=== PATIENT | female | born 1975 | race Caucasian/White ===

== ENCOUNTER 2016-10-18 05:06 | Emergency (ER) | payer OTHER ==
[2016-10-18] MEDS ORDERED: ONDANSETRON 4 MG/2 ML VIAL IVP STA (05:21)
[2016-10-18] MEDS ORDERED: NITROGLYCERIN OINT 1 INCH/GM PACKET TOPICAL STA (05:21)
[2016-10-18] MEDS ORDERED: SODIUM CHLORIDE 0.9% 1,000 ML IV STA (05:21)
[2016-10-18] MEDS ORDERED: MORPHINE SULFATE 2 MG/ML SYRINGE IVP STA (05:21)
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
[2016-10-18 05:35] LABS: Basophils % (A) 1 %; CH 30.7; CHCM 33.9; Eosinophils # (A) 0.3 k/uL (0-0.7); Eosinophils % (A) 4 %; HCT 42.2 % (34.0-46.0); HDW 2.27; HGB 13.8 gm/dL (11.4-16.0); Luc # (Auto) 0.15; Luc % (Auto) 2; Lymphocytes # (A) 3.3 k/uL (1.0-4.8); Lymphocytes % (A) 45 %; MCH 29.9 pg (25.0-35.0); MCHC 32.8 g/dL (31.0-37.0); Mean Platelet Volume 6.1; Monocytes # (A) 0.3 k/uL (0-1.0); Monocytes % (A) 5 %; Neutrophils # (A) 3.3 k/uL (1.3-7.7); Neutrophils % (A) 44 %; RBC 4.64 m/uL (3.80-5.40); RDW 12.5 % (11.5-15.5); WBC 7.3 k/uL (3.8-10.6); WBC (Perox) 7.47
[2016-10-18 05:49] LABS: Partial Thromboplastin Time 23.1 sec (22.0-30.0); Prothrombin Time 10.1 sec (9.0-12.0)
[2016-10-18 05:50] LABS: ALT 29 U/L (9-52); AST 18 U/L (14-36); Alkaline Phosphatase 67 U/L (38-126); Amylase 80 U/L (30-110); Anion Gap 10 mmol/L; Blood Urea Nitrogen 13 mg/dL (7-17); Carbon Dioxide 27 mmol/L (22-30); Chloride 107 mmol/L (98-107); Glucose 82 mg/dL (74-99); Non-African American GFR(MDRD) >60 (>60 ml/min/1.73 sqM); Potassium 3.3 mmol/L (3.5-5.1); Sodium 144 mmol/L (137-145); Total Bilirubin 0.3 mg/dL (0.2-1.3); Total Protein 6.1 g/dL (6.3-8.2)
[2016-10-18 05:57] LABS: Creatine Kinase 51 U/L (30-135)
[2016-10-18 06:11] LABS: Creatine Kinase MB 0.5 ng/mL (0.0-2.4); Troponin I <0.012 ng/mL (0.000-0.034)
--- NOTE | 2016-10-18 06:16 | XR ---
EXAMINATION TYPE: XR chest 2V DATE OF EXAM: 10/18/2016 5:51 AM COMPARISON: 06/20/2016 HISTORY: Chest pain TECHNIQUE: Frontal and lateral views of the chest are obtained. FINDINGS: The heart and mediastinum are normal. Lungs are clear. Diaphragm is normal. There are ches t leads. Bony thorax is intact. IMPRESSION: Normal chest. No change.
[2016-10-18 06:34] VITALS: BP 109/74; PULSE 72; RESP 109; TEMP 97.1
== END 2016-10-18 07:04 | disposition home or self-care (01) ==
LOC: EC 05:06
DX: R07.81 Pleurodynia (principal); F32.9 Major depressive disorder, single episode, unspecified; F17.200 Nicotine dependence, unspecified, uncomplicated; Z79.899 Other long term (current) drug therapy; Z86.69 Personal history of other diseases of the nervous system and sense organs
CPT/HCPCS: 99285; 96374; 96375; 96361; 36415; 93005; 85379; 80053; 82150; 82550; 82553; 83690; 83735; 84484; 85025; 85610; 85730; 71020; J2405; J2270

== ENCOUNTER 2016-10-22 | Emergency (ER) | payer OTHER ==
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
== END 2016-10-22 18:00 | disposition home or self-care (01) ==
CPT/HCPCS: 99282

== ENCOUNTER 2017-01-04 02:29 | Emergency (ER) | payer OTHER ==
[2017-01-04 02:36] VITALS: BP 136/79; PULSE 82; RESP 18; TEMP 98.2
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
[2017-01-04] MEDS ORDERED: ACET/COD 300 MG/30 MG STARTER PACK 6 TAB BTL PO STA (02:52)
== END 2017-01-04 03:07 | disposition home or self-care (01) ==
LOC: EC 02:29
DX: K02.9 Dental caries, unspecified (principal); G35 Multiple sclerosis; F31.9 Bipolar disorder, unspecified; F41.9 Anxiety disorder, unspecified; F12.90 Cannabis use, unspecified, uncomplicated; F17.200 Nicotine dependence, unspecified, uncomplicated; Z79.899 Other long term (current) drug therapy
CPT/HCPCS: 99282

== ENCOUNTER → 2017-02-21 | Outpatient (CLI) | payer OTHER ==
[2017-02-22 16:23] LABS: Mis test requested (Blood) Mold Allergens
== END ==
LOC: LABWHC1 12:25
PROVIDERS: ATTEND Family Medicine
DX: Z77.120 Contact with and (suspected) exposure to mold (toxic) (principal)
CPT/HCPCS: 36415; 86003

== ENCOUNTER 2017-03-04 18:50 | Emergency (ER) | payer OTHER ==
[2017-03-04] MEDS ORDERED: SODIUM CHLORIDE 0.9% 500 ML IV STA (20:11)
[2017-03-04] MEDS ORDERED: SODIUM CHLORIDE 0.9% 1,000 ML IV STA (20:11)
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
[2017-03-04 21:11] LABS: Basophils % (A) 0 %; CH 30.5; CHCM 34.6; Eosinophils # (A) 0.1 k/uL (0-0.7); Eosinophils % (A) 1 %; HCT 43.4 % (34.0-46.0); HDW 2.22; Luc # (Auto) 0.08; Luc % (Auto) 1; Lymphocytes # (A) 1.2 k/uL (1.0-4.8); Lymphocytes % (A) 12 %; MCH 30.5 pg (25.0-35.0); MCHC 34.5 g/dL (31.0-37.0); MCV 88.4 fL (80.0-100.0); Mean Platelet Volume 6.1; Monocytes # (A) 0.4 k/uL (0-1.0); Monocytes % (A) 4 %; Neutrophils # (A) 8.7 k/uL (1.3-7.7); Neutrophils % (A) 82 %; RBC 4.91 m/uL (3.80-5.40); RDW 13.1 % (11.5-15.5); WBC 10.6 k/uL (3.8-10.6); WBC (Perox) 11.08
--- NOTE | 2017-03-04 21:16 | XR ---
EXAMINATION TYPE: XR chest 2V DATE OF EXAM: 03/04/2017 COMPARISON: Prior chest x-ray 18 October 2016 HISTORY: Altered mental status. TECHNIQUE: Frontal and lateral views of the chest are obtained. FINDINGS: There is no focal air space opacity, pleural effusion, or pneumothorax seen. The cardiac silhouette size is within normal limits. Calcification suggests calcific tendinitis in the right ned ulder. Prominent lung volume may be indicative of COPD. The osseous structures are intact. IMPRESSION: No acute cardiopulmonary process.
[2017-03-04 21:22] LABS: Appearance,Urine Turbid (Clear); Bacteria,Urine Many /hpf; Bilirubin,Urine Negative (Negative); Glucose,Urine (UA) Negative (Negative); Ketones,Urine 1+ (Negative); Leukocyte Esterase,Urine Large (Negative); Mucus,Urine Occasional /hpf; Nitrite,Urine Positive (Negative); PH, Urine 5.5 (5.0-8.0); Partial Thromboplastin Time 23.4 sec (22.0-30.0); Particle Count 312935; Protein,Urine 2+ (Negative); Prothrombin Time 10.5 sec (9.0-12.0); Specific Gravity,Urine 1.022 (1.001-1.035); Squamous Epithelial Cell,Urine 4 /hpf (0-4); UA Billing (MACRO vs. MICRO) MICRO; Urobilinogen,Urine <2.0 mg/dL (<2.0); WBC,Urine 70 /hpf (0-5)
[2017-03-04 21:23] LABS: ALT 23 U/L (9-52); AST 15 U/L (14-36); Alkaline Phosphatase 57 U/L (38-126); Anion Gap 8 mmol/L; Blood Urea Nitrogen 8 mg/dL (7-17); Calcium 9.5 mg/dL (8.4-10.2); Carbon Dioxide 26 mmol/L (22-30); Chloride 105 mmol/L (98-107); Glucose 88 mg/dL (74-99); Non-African American GFR(MDRD) >60 (>60 ml/min/1.73 sqM); Potassium 3.9 mmol/L (3.5-5.1); Sodium 139 mmol/L (137-145); Total Bilirubin 0.5 mg/dL (0.2-1.3); Total Protein 6.6 g/dL (6.3-8.2)
[2017-03-04 21:32] LABS: Creatine Kinase 50 U/L (30-135)
[2017-03-04 21:45] LABS: Creatine Kinase MB 0.4 ng/mL (0.0-2.4); Troponin I <0.012 ng/mL (0.000-0.034)
[2017-03-04] MEDS ORDERED: LEVOFLOXACIN 750 MG TAB PO STA (22:42)
[2017-03-05 00:50] VITALS: BP 133/73; PULSE 87; RESP 18; TEMP 97.7
== END 2017-03-05 00:52 | disposition home or self-care (01) ==
LOC: EC 18:50
DX: F19.10 Other psychoactive substance abuse, uncomplicated (principal); N39.0 Urinary tract infection, site not specified; F31.9 Bipolar disorder, unspecified; F41.9 Anxiety disorder, unspecified; F17.200 Nicotine dependence, unspecified, uncomplicated; Z79.899 Other long term (current) drug therapy
CPT/HCPCS: 36415; 71020; 80053; 80306; 81001; 82550; 82553; 84484; 85025; 85610; 85730; 93005; 96360; 96361; 99284

== ENCOUNTER 2017-04-08 23:04 | Emergency (ER) | payer OTHER ==
[2017-04-08 23:27] VITALS: BP 132/76; PULSE 90; RESP 16; TEMP 97.6
[2017-04-08] MEDS ORDERED: PHENAZOPYRIDINE 100 MG TAB PO STA (23:50)
[2017-04-08] MEDS ORDERED: CIPROFLOXACIN HCL 250 MG TAB PO STA (23:50)
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
[2017-04-09 00:11] LABS: Appearance,Urine Cloudy (Clear); Bacteria,Urine Many /hpf; Bilirubin,Urine Negative (Negative); Calcium Oxalate Crystals,Urine Many /hpf; Glucose,Urine (UA) Negative (Negative); Ketones,Urine Trace (Negative); Leukocyte Esterase,Urine Moderate (Negative); Mucus,Urine Many /hpf; Nitrite,Urine Positive (Negative); PH, Urine 5.5 (5.0-8.0); Particle Count 54602; Protein,Urine 1+ (Negative); RBC,Urine 3 /hpf (0-5); Specific Gravity,Urine 1.027 (1.001-1.035); Squamous Epithelial Cell,Urine 7 /hpf (0-4); UA Billing (MACRO vs. MICRO) MICRO; Urobilinogen,Urine <2.0 mg/dL (<2.0); WBC,Urine 57 /hpf (0-5)
== END 2017-04-09 00:28 | disposition home or self-care (01) ==
LOC: EC 23:04
DX: N39.0 Urinary tract infection, site not specified (principal); F31.9 Bipolar disorder, unspecified; F41.9 Anxiety disorder, unspecified; F17.200 Nicotine dependence, unspecified, uncomplicated; Z79.899 Other long term (current) drug therapy
CPT/HCPCS: 81001; 87077; 87086; 87186; 99283

== ENCOUNTER 2017-04-16 06:35 | Emergency (ER) | payer OTHER ==
[2017-04-16] MEDS ORDERED: SODIUM CHLORIDE 0.9% 500 ML IV STA (06:39)
[2017-04-16] MEDS ORDERED: SODIUM CHLORIDE 0.9% 1,000 ML IV STA ×2 (06:39)
[2017-04-16] MEDS ORDERED: cefTRIAXone 2,000 MG in SODIUM CHLORIDE 0.9% 100 ML IVPB STA (06:40)
[2017-04-16 06:41] VITALS: TEMP 98.4
[2017-04-16] MEDS ORDERED: HYDROcodone/APAP 5-325MG 1 EACH TAB PO STA (06:51)
[2017-04-16] MEDS ORDERED: LORazepam 1 MG TAB PO STA (06:51)
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
--- NOTE | 2017-04-16 07:47 | CT ---
EXAMINATION TYPE: CT brain wo con DATE OF EXAM: 04/16/2017 COMPARISON: 10/27/2015 HISTORY: 41-year-old female with pain and headache after Fall TECHNIQUE: Examination was done in axial plane without intravenous contrast. Coronal and sagittal r econstructions performed. CT DLP: 1100 mGycm Automated exposure control for dose reduction was used. FINDINGS: There is no evidence of acute intracranial hemorrhage, acute ischemic changes, mass, mass-effect, or extra-axial fluid collection. There is no effacement of cerebral sulci or basal subarachnoid cister ns. There is no hydrocephalus. There is no midline shift. Castro-white matter distinction is preserv ed. Marked progression periatrial and posterior periventricular white matter hypodensities with moderate confluence white matter changes throughout and increasing Muñoz finger hypodensities. Paranasal sinuses and mastoid air cells are in size. The globes are intact. IMPRESSION: 1. As compared to 10/27/2015, there has been marked progression in white matter disease especially in the periventricular/periatrial regions. The study from that time indicates that the patient has MS. C orrelate for progressive demyelinating disease. Appropriate follow-up recommended. 2. No acute intracranial hemorrhage, mass effect, or midline shift.
--- NOTE | 2017-04-16 07:57 | XR ---
EXAMINATION TYPE: XR pelvis AP view DATE OF EXAM: 04/16/2017 COMPARISON: NONE HISTORY: 41 year-old female right hip pain, possible fall FINDINGS: SI joints appear symmetric and intact. Small delineation to the articular lines of the sacrum. Pubic symphysis appears intact. The bilateral hips are symmetric and intact. No acute fracture or dislocati on. There is a 1.7 cm calcific focus seen at the left greater trochanter. IMPRESSION: 1. No acute osseous abnormality seen. 2. A 1.7 cm calcific focus at the left greater trochanter can be seen in the setting of calcific glut eal tendinitis. Clinically correlate.
--- NOTE | 2017-04-16 07:59 | XR ---
EXAMINATION TYPE: 4 views right wrist 4 views left wrist DATE OF EXAM: 04/16/2017 COMPARISON: NONE HISTORY: 41-year-old female with pain after possible fall FINDINGS: The radiocarpal and distal radioulnar joints as well as the midcarpal compartment on both sides appea r intact. Incidental slight ulnar positive variance on both sides. IMPRESSION: Incidental slight positive ulnar variance on both sides. Otherwise, no acute osseous abnormality seen .
[2017-04-16 08:51] VITALS: BP 102/60; PULSE 98; RESP 16
== END 2017-04-16 08:51 | disposition home or self-care (01) ==
LOC: EC 06:35
DX: R51 Headache (principal); M25.532 Pain in left wrist; M25.531 Pain in right wrist; M25.551 Pain in right hip; F17.200 Nicotine dependence, unspecified, uncomplicated; Z98.890 Other specified postprocedural states; W01.0XXA Fall on same level from slipping, tripping and stumbling without subsequent striking against object, initial encounter
CPT/HCPCS: 70450; 72170; 99284

== ENCOUNTER 2017-04-20 02:29 | Emergency (ER) | payer OTHER ==
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
--- NOTE | 2017-04-20 03:49 | XR ---
EXAM: XR Right Ankle Complete, 3 or More Views CLINICAL HISTORY: Reason: Pain TECHNIQUE: Frontal, lateral and oblique views of the right ankle. COMPARISON: 11/05/2015 FINDINGS: Bones/joints: Unremarkable. No acute fracture. No dislocation. Soft tissues: Unremarkable. IMPRESSION: Normal right ankle x-rays.
[2017-04-20 03:56] VITALS: BP 109/66; PULSE 71; RESP 20; TEMP 97.7
== END 2017-04-20 04:00 | disposition home or self-care (01) ==
LOC: EC 02:29
DX: S93.401A Sprain of unspecified ligament of right ankle, initial encounter (principal); F17.200 Nicotine dependence, unspecified, uncomplicated; W01.0XXA Fall on same level from slipping, tripping and stumbling without subsequent striking against object, initial encounter
CPT/HCPCS: 99283

== ENCOUNTER 2017-05-09 01:47 | Emergency (ER) | payer OTHER ==
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
[2017-05-09 02:26] LABS: Amorphous Sediment,Urine Moderate /hpf; Appearance,Urine Turbid (Clear); Bacteria,Urine Occasional /hpf; Bilirubin,Urine Negative (Negative); Glucose,Urine (UA) Negative (Negative); Ketones,Urine Negative (Negative); Leukocyte Esterase,Urine Small (Negative); Mucus,Urine Many /hpf; Nitrite,Urine Positive (Negative); PH, Urine 6.5 (5.0-8.0); Particle Count 122581; Protein,Urine 1+ (Negative); Specific Gravity,Urine 1.021 (1.001-1.035); Squamous Epithelial Cell,Urine 22 /hpf (0-4); UA Billing (MACRO vs. MICRO) MICRO; Urobilinogen,Urine <2.0 mg/dL (<2.0); WBC,Urine 5 /hpf (0-5)
[2017-05-09] MEDS ORDERED: CEPHALEXIN 500MG STARTER PACK 4 CAP BTL PO STA (02:29)
[2017-05-09 02:35] VITALS: BP 134/85; PULSE 98; RESP 18; TEMP 98.6
== END 2017-05-09 02:41 | disposition home or self-care (01) ==
LOC: EC 01:47
DX: N39.0 Urinary tract infection, site not specified (principal); F41.9 Anxiety disorder, unspecified; G93.89 Other specified disorders of brain; F17.200 Nicotine dependence, unspecified, uncomplicated
CPT/HCPCS: 81001; 87077; 87086; 87186; 99283

== ENCOUNTER 2017-06-19 00:49 | Emergency (ER) | payer OTHER ==
[2017-06-19 00:54] VITALS: BP 126/79; PULSE 115; RESP 20
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
[2017-06-19 03:05] VITALS: TEMP 100.2
[2017-06-19 03:15] LABS: Basophils # (A) 0.1 k/uL (0-0.2); Basophils % (A) 1 %; CH 30.4; CHCM 33.7; Eosinophils # (A) 0.4 k/uL (0-0.7); Eosinophils % (A) 4 %; HCT 43.9 % (34.0-46.0); HDW 2.21; HGB 14.8 gm/dL (11.4-16.0); Luc # (Auto) 0.13; Luc % (Auto) 2; Lymphocytes # (A) 2.8 k/uL (1.0-4.8); Lymphocytes % (A) 35 %; MCH 30.6 pg (25.0-35.0); MCHC 33.7 g/dL (31.0-37.0); MCV 90.7 fL (80.0-100.0); Mean Platelet Volume 6.5; Monocytes # (A) 0.4 k/uL (0-1.0); Monocytes % (A) 4 %; Neutrophils # (A) 4.2 k/uL (1.3-7.7); Neutrophils % (A) 54 %; RBC 4.85 m/uL (3.80-5.40); RDW 13.1 % (11.5-15.5); WBC 7.9 k/uL (3.8-10.6); WBC (Perox) 7.77
[2017-06-19 03:21] LABS: Appearance,Urine Cloudy (Clear); Bilirubin,Urine Negative (Negative); Glucose,Urine (UA) Negative (Negative); Ketones,Urine Negative (Negative); Leukocyte Esterase,Urine Negative (Negative); Mucus,Urine Occasional /hpf; Nitrite,Urine Positive (Negative); Particle Count 39753; Protein,Urine Trace (Negative); Specific Gravity,Urine 1.019 (1.001-1.035); Squamous Epithelial Cell,Urine 1 /hpf (0-4); UA Billing (MACRO vs. MICRO) MICRO; Urobilinogen,Urine <2.0 mg/dL (<2.0); WBC,Urine 3 /hpf (0-5)
[2017-06-19 03:25] LABS: ALT 41 U/L (9-52); AST 32 U/L (14-36); Alcohol <10 mg/dL; Alkaline Phosphatase 51 U/L (38-126); Anion Gap 7 mmol/L; Blood Urea Nitrogen 11 mg/dL (7-17); Calcium 9.5 mg/dL (8.4-10.2); Carbon Dioxide 27 mmol/L (22-30); Chloride 102 mmol/L (98-107); Glucose 86 mg/dL (74-99); Non-African American GFR(MDRD) >60 (>60 ml/min/1.73 sqM); Potassium 4.1 mmol/L (3.5-5.1); Sodium 136 mmol/L (137-145); Total Bilirubin 0.4 mg/dL (0.2-1.3); Total Protein 6.6 g/dL (6.3-8.2)
== END 2017-06-19 04:13 | disposition home or self-care (01) ==
LOC: EC 00:49
DX: F11.10 Opioid abuse, uncomplicated (principal); G35 Multiple sclerosis; R33.9 Retention of urine, unspecified; F17.200 Nicotine dependence, unspecified, uncomplicated; Z53.20 Procedure and treatment not carried out because of patient's decision for unspecified reasons
CPT/HCPCS: 36415; 80053; 80306; 80320; 81001; 85025; 99283

== ENCOUNTER 2017-07-14 04:12 | Emergency (ER) | payer OTHER ==
[2017-07-14] MEDS ORDERED: IBUPROFEN 600 MG TAB PO STA (04:36)
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
--- NOTE | 2017-07-14 05:08 | XR ---
EXAM: XR Right Hip With Pelvis When Performed, 2 or 3 Views CLINICAL HISTORY: Reason: Pain TECHNIQUE: Two or three views of the right hip, with pelvis when performed. COMPARISON: 04/16/2017. FINDINGS: Bones/joints: Unremarkable. No acute fracture. No dislocation. Soft tissues: Unremarkable. IMPRESSION: No radiographic evidence of acute osseous injury.
--- NOTE | 2017-07-14 05:10 | XR ---
EXAM: XR Right Elbow Complete, 3 or More Views CLINICAL HISTORY: Reason: Pain TECHNIQUE: Frontal, lateral and oblique views of the right elbow. COMPARISON: No relevant prior studies available. FINDINGS: Bones/joints: Unremarkable. No acute fracture. No dislocation. Soft tissues: No evidence of significant overlying soft tissue swelling. IMPRESSION: No radiographic evidence of acute osseous injury.
[2017-07-14 05:31] VITALS: BP 124/76; PULSE 108; RESP 18; TEMP 97.9
== END 2017-07-14 05:32 | disposition home or self-care (01) ==
LOC: EC 04:12
DX: S50.01XA Contusion of right elbow, initial encounter (principal); S70.01XA Contusion of right hip, initial encounter; F17.200 Nicotine dependence, unspecified, uncomplicated; W01.10XA Fall on same level from slipping, tripping and stumbling with subsequent striking against unspecified object, initial encounter
CPT/HCPCS: 73502; 99283

== ENCOUNTER 2017-07-15 05:24 | Emergency (ER) | payer OTHER ==
[2017-07-15 05:31] VITALS: RESP 16
[2017-07-15] MEDS ORDERED: AMOXICILLIN 875 MG TAB PO STA (05:58)
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
--- NOTE | 2017-07-15 06:42 | XR ---
EXAM: XR Nasal Bones, 3 or More Views CLINICAL HISTORY: Reason: Pain TECHNIQUE: Frontal and lateral views of the nasal bones. COMPARISON: No relevant prior studies available. FINDINGS: Bones/joints: Transverse fracture of the nasal bone without significant displacement. Sinuses: No evidence of air-fluid levels. IMPRESSION: Transverse fracture of the nasal bone without significant displacement.
[2017-07-15 07:02] VITALS: BP 90/60; PULSE 68; TEMP 97.1
== END 2017-07-15 06:59 | disposition home or self-care (01) ==
LOC: EC 05:24
DX: S02.2XXA Fracture of nasal bones, initial encounter for closed fracture (principal); F17.200 Nicotine dependence, unspecified, uncomplicated; W18.09XA Striking against other object with subsequent fall, initial encounter; Y92.009 Unspecified place in unspecified non-institutional (private) residence as the place of occurrence of the external cause
CPT/HCPCS: 70160; 99283

== ENCOUNTER → 2017-07-19 | Outpatient (CLI) | payer OTHER ==
--- NOTE | 2017-07-19 23:39 | MR ---
EXAMINATION TYPE: MR brain/cspine wo/w DATE OF EXAM: 07/19/2017 COMPARISON: 01/15/2015 and 12/31/2014 HISTORY: Dizziness, hearing loss rt side, neck pain, MS TECHNIQUE: Multiplanar, multisequence images of the brain and brainstem is performed without and with IV contras t, utilizing 6 mL intravenous Gadavist . FINDINGS: There is on the T2 images extensive abnormal increased signal in the periventricular white matter wit h coalescent areas that measure up to 2 cm in thickness. There is more involvement of the occipital l obes. There is no hydrocephalus. Ventricles have fairly normal size. There is some thinning of the co rpus callosum. There is extensive abnormal increased signal involving the corpus callosum on the FLAI R images. There is abnormal increased signal in the left cerebral peduncle on the T2 images. Sella turcica appe ars normal. The cervical spinal cord has fairly normal signal pattern. There is no spinal stenosis. Cervical vert ebra have normal spacing and alignment. Contrast images show no pathologic enhancement. FLAIR images show also patchy increased signal in the left and right cerebellar peduncles. There is m ild cerebral cortical atrophy. Optic chiasm appears normal. Pituitary stalk is in the midline. There is a small posterior disc herni ation at C6-7 without significant impingement on the spinal canal. There is small posterior disc bulg e at C3-4 without impingement on the spinal canal. IMPRESSION: There are extensive white matter changes as described above consistent with severe demyel inating disease. There is significant progression of the lesions compared to last exam of 12/31/2014. No evidence of demyelinating disease in the cervical spinal cord. Small posterior disc bulging and herniation at C3-4 and C6-7 without change.
== END | disposition home or self-care (01) ==
LOC: RADMRIMAIN 15:07
PROVIDERS: ATTEND Nurse Practitioner Acute Care
DX: G35 Multiple sclerosis (principal); M50.21 Other cervical disc displacement, high cervical region; R90.82 White matter disease, unspecified
CPT/HCPCS: 70553; 72156; A9581

== ENCOUNTER → 2017-07-26 | Outpatient (CLI) | payer OTHER ==
[2017-07-26 17:42] LABS: ALT 23 U/L (9-52); AST 14 U/L (14-36); Alkaline Phosphatase 56 U/L (38-126); Anion Gap 11 mmol/L; Blood Urea Nitrogen 9 mg/dL (7-17); Calcium 9.8 mg/dL (8.4-10.2); Carbon Dioxide 25 mmol/L (22-30); Chloride 103 mmol/L (98-107); Glucose 88 mg/dL (74-99); Non-African American GFR(MDRD) >60 (>60 ml/min/1.73 sqM); Potassium 3.7 mmol/L (3.5-5.1); Sodium 139 mmol/L (137-145); Total Bilirubin 0.3 mg/dL (0.2-1.3); Total Protein 6.8 g/dL (6.3-8.2)
[2017-07-26 17:48] LABS: Basophils % (A) 1 %; CH 31.5; CHCM 33.8; Eosinophils # (A) 0.1 k/uL (0-0.7); Eosinophils % (A) 1 %; HCT 45.7 % (34.0-46.0); HDW 2.22; HGB 14.7 gm/dL (11.4-16.0); Luc # (Auto) 0.11; Luc % (Auto) 2; Lymphocytes # (A) 2.2 k/uL (1.0-4.8); Lymphocytes % (A) 31 %; MCH 30.2 pg (25.0-35.0); MCHC 32.2 g/dL (31.0-37.0); MCV 93.7 fL (80.0-100.0); Mean Platelet Volume 7.3; Monocytes # (A) 0.4 k/uL (0-1.0); Monocytes % (A) 5 %; Neutrophils # (A) 4.4 k/uL (1.3-7.7); Neutrophils % (A) 61 %; RBC 4.88 m/uL (3.80-5.40); RDW 14.1 % (11.5-15.5); WBC 7.1 k/uL (3.8-10.6); WBC (Perox) 6.62
[2017-07-26 20:55] LABS: Rheumatoid Factor, Qnt <9 IU/mL (<12)
[2017-07-27 01:00] LABS: ANA w/Reflex to Titer NEGATIVE (NEGATIVE)
== END | disposition home or self-care (01) ==
LOC: LABWHC1 16:42
PROVIDERS: ATTEND Nurse Practitioner Acute Care
DX: E55.9 Vitamin D deficiency, unspecified (principal); M13.0 Polyarthritis, unspecified
CPT/HCPCS: 36415; 80053; 82306; 82607; 84207; 84439; 84443; 84481; 85025; 86038; 86431

== ENCOUNTER 2017-08-06 04:42 | Observation (INO) | payer OTHER ==
[2017-08-06] MEDS ORDERED: SODIUM CHLORIDE 0.9% 1,000 ML IV STA (05:20)
[2017-08-06] MEDS ORDERED: METOCLOPRAMIDE 5 MG/ML 2 ML VIAL IVP STA (05:21)
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
[2017-08-06 05:49] LABS: Basophils % (A) 1 %; CH 29.9; CHCM 33.2; Eosinophils # (A) 0.2 k/uL (0-0.7); Eosinophils % (A) 3 %; HCT 43.5 % (34.0-46.0); HDW 2.15; HGB 14.5 gm/dL (11.4-16.0); Luc % (Auto) 2; Lymphocytes # (A) 1.9 k/uL (1.0-4.8); Lymphocytes % (A) 28 %; MCH 30.3 pg (25.0-35.0); MCHC 33.4 g/dL (31.0-37.0); MCV 90.7 fL (80.0-100.0); Monocytes # (A) 0.3 k/uL (0-1.0); Monocytes % (A) 5 %; Neutrophils # (A) 4.1 k/uL (1.3-7.7); Neutrophils % (A) 63 %; RBC 4.79 m/uL (3.80-5.40); RDW 14.2 % (11.5-15.5); WBC 6.6 k/uL (3.8-10.6); WBC (Perox) 6.62
[2017-08-06 06:00] LABS: ALT 20 U/L (9-52); AST 14 U/L (14-36); Alkaline Phosphatase 53 U/L (38-126); Anion Gap 7 mmol/L; Blood Urea Nitrogen 7 mg/dL (7-17); Calcium 9.6 mg/dL (8.4-10.2); Carbon Dioxide 25 mmol/L (22-30); Chloride 109 mmol/L (98-107); Glucose 95 mg/dL (74-99); INR 1.2 (<1.2); Magnesium 2.1 mg/dL (1.6-2.3); Non-African American GFR(MDRD) >60 (>60 ml/min/1.73 sqM); Partial Thromboplastin Time 26.7 sec (22.0-30.0); Potassium 3.7 mmol/L (3.5-5.1); Prothrombin Time 11.9 sec (9.0-12.0); Sodium 141 mmol/L (137-145); Total Bilirubin 0.3 mg/dL (0.2-1.3); Total Protein 6.1 g/dL (6.3-8.2)
--- NOTE | 2017-08-06 06:10 | XR ---
EXAM: XR Chest, 2 Views CLINICAL HISTORY: Reason: Weakness TECHNIQUE: Frontal and lateral views of the chest. COMPARISON: 02/25/2017 FINDINGS: Lungs: Unremarkable. No consolidation. Pleural space: Unremarkable. No pneumothorax. Heart: Unremarkable. No cardiomegaly. Mediastinum: Unremarkable. Bones/joints: Unremarkable. IMPRESSION: Normal chest x-rays.
[2017-08-06 06:15] LABS: Creatine Kinase 30 U/L (30-135)
--- NOTE | 2017-08-06 06:26 | CT ---
EXAM: CT Head Without Intravenous Contrast CLINICAL HISTORY: Reason: weakness TECHNIQUE: Axial computed tomography images of the head/brain without intravenous contrast. DLP is 1108.40 mGy-cm. This CT exam was performed using one or more of the following dose reduction techniques: automated exposure control, adjustment of the mA and/or kV according to patient size, and/or use of iterative reconstruction technique. COMPARISON: 04/16/17 FINDINGS: No intracranial hemorrhage, midline shift, or mass effect. There is generalized atrophy with prominence of the ventricles, sulci, and basal cisterns noted. Stable periventricular white matter hypodensities IMPRESSION: No acute intracranial process. Stable periventricular white matter hypodensities which may be on the basis of demyelinating disease as described in patient's history. Correlate clinically.
[2017-08-06 06:28] LABS: Creatine Kinase MB 0.5 ng/mL (0.0-2.4); Troponin I <0.012 ng/mL (0.000-0.034)
[2017-08-06 06:54] LABS: Amorphous Sediment,Urine Rare /hpf; Appearance,Urine Cloudy (Clear); Bilirubin,Urine Negative (Negative); Glucose,Urine (UA) Negative (Negative); Ketones,Urine Negative (Negative); Leukocyte Esterase,Urine Trace (Negative); Nitrite,Urine Negative (Negative); Particle Count 9436; Protein,Urine Trace (Negative); Specific Gravity,Urine 1.018 (1.001-1.035); Squamous Epithelial Cell,Urine 7 /hpf (0-4); UA Billing (MACRO vs. MICRO) MICRO; WBC,Urine 1 /hpf (0-5)
[2017-08-06] MEDS ORDERED: NALOXONE 0.4 MG/ML 1 ML VIAL IV PRN (06:58)
[2017-08-06] MEDS ORDERED: SODIUM CHLORIDE 0.9% 1,000 ML IV SCH (07:00)
[2017-08-06 08:09] VITALS: BP 115/83; PULSE 98; RESP 18; TEMP 97.8
[2017-08-06] MEDS ORDERED: DIAZEPAM 2 MG TAB PO PRN (09:48)
[2017-08-06] MEDS ORDERED: Acetaminophen-Codeine 300-30mg TAB PO PRN (09:49)
[2017-08-06] MEDS ORDERED: LORazepam 2 MG/ML INJ IV PRN (09:49)
--- NOTE | 2017-08-06 11:09 | HP ---
HISTORY AND PHYSICAL CHIEF COMPLAINT: A 41-year-old, white female, presents for fatigue and weakness to the emergency room. She is admitted for abnormal toxic lesions in her brain and possible tremor, fatigue and weakness. Unable to stand, and walk steady. No confusion. No severe weakness. She was seen in the emergency room. Neurology was consulted. Awaiting for neurologic evaluation. HOME MEDICATIONS: Motrin,amoxicillin and tramadol. ALLERGIES: Negative. REVIEW OF SYSTEMS: Twelve-point review of system negative. PAST MEDICAL HISTORY: Chest pain, angina,muscular disorder,pneumonia,syncope, mild right-sided headache, left headache, paresthesias with 2 lesions in the brain possible MS. SURGICAL HISTORY: Orthopedic surgery. Tubal ligation, rhinoplasty. Anxiety and bipolar depression. SOCIAL HISTORY: Current everyday smoker. No alcohol. Occasional marijuana. FAMILY HISTORY: Father with CVA, TIA. Mother with liver disease. PHYSICAL EXAMINATION: Temp 98.4, pulse 94 to 95 respiratory rate 12 to 16. Blood pressure 112-135/66-70, O2 saturation 97 to 99%. Cardiovascular S1, S2. Lungs transmitted upper sounds. GI soft, nontender. HEMATOLOGIC: Negative Homans. Psych: Fair mood and affect. Ophthalmologic pupils equal, round, reactive to light and accommodation. Neurologic: She has a mild tremor of her arm. Strength is 5/5 x4 extremities. No facial asymmetry seen. Neck is supple. No meningeal changes. EKG sinus rhythm. He labs are reviewed. Essentially normal CBC and Chem panel. ASSESSMENT: Generalized weakness. Abnormal CT scan of the brain. New onset tremor. Await neurology consultation and based on their recommendations we will treat her medically. Continue home medications. Otherwise she will be cleared to discharge if neurology clears. Once neurology clears, there is neurologic finding at this time with the tremor and generalized weakness. MMODL / IJN: [id number] /
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
--- NOTE | 2017-09-24 10:10 | P.DS ---
Providers Date of admission: 08/06/17 06:58 Attending physician: Jcarlos Watson Consults: 08/06/17 06:59 Consult Physician Urgent Consulting Provider: Vini See Consult Reason/Comments: weakness Do you want consulting provider notified?: Yes Primary care physician: Stated None Hospital Course: Patient was admitted for a tremor weakness and possibly an MS exacerbation and she was seen by neurology Dr. See who stated no further neurological workup wouldn't be needed in the hospital and he'll follow up with her as an outpatient she was cleared from neurologic standpoint from this acute neurological problem which time patient was stably discharged home Pertinent Studies: Please see all available test in the patient's chart Patient Condition at Discharge: Good Plan - Discharge Summary Discharge Rx Participant: No New Discharge Prescriptions: No Action Ibuprofen [Motrin] 600 mg PO Q8HR PRN #20 tab PRN Reason: Pain Naproxen [Naprosyn] 500 mg PO Q12HR PRN PRN Reason: Pain Diazepam [Valium] 1 - 2 mg PO DAILY PRN PRN Reason: Anxiety Butalb/APAP/Caff 50-325-40Mg [Fioricet 50-325-40] 1 tab PO Q4H PRN PRN Reason: Migraine Headache traMADol HCl [Ultram] 50 - 100 mg PO Q6H PRN PRN Reason: Pain Phenazopyridine [Pyridium] 200 mg PO TID #6 tablet Discharge Medication List Ibuprofen [Motrin] 600 mg PO Q8HR PRN #20 tab 07/15/17 [Rx] Butalb/APAP/Caff 50-325-40Mg [Fioricet 50-325-40] 1 tab PO Q4H PRN 08/06/17 [ History] Diazepam [Valium] 1 - 2 mg PO DAILY PRN 08/06/17 [History] Naproxen [Naprosyn] 500 mg PO Q12HR PRN 08/06/17 [History] traMADol HCl [Ultram] 50 - 100 mg PO Q6H PRN 08/06/17 [History] Phenazopyridine [Pyridium] 200 mg PO TID #6 tablet 08/14/17 [Rx] Follow up Appointment(s)/Referral(s): Vini See MD [STAFF PHYSICIAN] - 1 Week (keep current scheduled appointment ) None,Stated [Primary Care Provider] - 1-2 days Patient Instructions/Handouts: Weakness (GEN) Care Plan Goals (MU): PLEASE MAKE FOLLOW UP APPOINTMENTS FIRST THING MONDAY MORNING Discharge Disposition: HOME SELF-CARE
== END 2017-08-06 14:13 | disposition home or self-care (01) ==
LOC: EC 04:42 → 4MS4W 06:58
PROVIDERS: ADMIT Family Medicine; ATTEND Family Medicine
DX: G35 Multiple sclerosis (principal); G89.4 Chronic pain syndrome; M21.371 Foot drop, right foot; F31.9 Bipolar disorder, unspecified; F41.9 Anxiety disorder, unspecified; F17.200 Nicotine dependence, unspecified, uncomplicated; Z82.3 Family history of stroke; R25.1 Tremor, unspecified
CPT/HCPCS: 96361; 96374; 99285; 36415; 93005; 97161; 84439; 84481; 80053; 82550; 82553; 83735; 84443; 84484; 85025; 85610; 85730; 81001; 80306; 71020; 70450; G0378; J2765